=== PATIENT | female | born 1985 | race African-American/Black ===

== ENCOUNTER 2016-12-08 15:39 | Inpatient (IN) | payer OTHER ==
--- NOTE | ~2016-12-08 | DS ---
Unit #: [id number] #: [id number] Patient: MARTIAN SALEH [id number] [facility] [address] [place] [address] [id number] I MR#: [id number] NAME: MARTINA SALEH ROOM: P256 Age: 31 Sex: F Admission Date: 12/08/2016 : 1985 Discharge Date: 12/18/2016 Attending Physician: Huber Mckenzie M.D. Primary Care Physician: Hiram Rios II, M.D. DISCHARGE SUMMARY IDENTIFYING DATA Ms. Saleh is a 31-year-old, , female who is a resident of [place], [place], and is known to us from previous multiple encounters and was self-referred to the hospital on a voluntary basis. DISCHARGE DIAGNOSES Psychiatric: Bipolar disorder, most recent episode depressed, recurrent, moderate, with psychosis; opioid dependence, moderate; methamphetamine dependence, moderate. Medical: Hepatis C. Stressors: Moderate psychosocial stressors. HISTORY OF PRESENT ILLNESS Please see initial psychiatric evaluation for details. PAST PSYCHIATRIC HISTORY Please see initial psychiatric evaluation for details. PAST MEDICAL HISTORY Please see initial psychiatric evaluation for details. HOSPITAL COURSE The patient was admitted to the adult chemical dependency unit at [facility] [place] and was oriented to the hospital environment. Routine p.r.n. medications were initiated, and she was started back on her home medications. Medications were adjusted and opioid detox protocol was initiated; however, the patient noticed to be very attention seeking, histrionic, and constantly asking for more and more medications and everyday she will have a list of symptoms, and list of requests and demands, and wanting medications to be adjusted constantly and wanting to move from one medication to another; however, some boundary setting was done and once stabilized, but was decided that the patient will be discharged home and will continue treatment on an outpatient basis. DISCHARGE MEDICATIONS Geodon 60 mg b.i.d. for bipolar, Remeron 15 mg at bedtime for depression, and Wellbutrin SR 200 mg in the morning for depression. DISCHARGE CONDITION Stable. PROGNOSIS Fair. Unit #: [id number] #: [id number] Patient: MARTINA SALEH Dictated by... Huber Mckenzie M.D. IAA/modl TD: 12/18/2016 18:59 JOB #: [id number] DISCHARGE SUMMARY Page 1 of 1 X Huber Mckenzie MD DISCHARGE SUMMARY
--- NOTE | ~2016-12-08 | HP ---
Unit #: [id number] #: [id number] Patient: PATRICIA SALEH [id number] [place] [address] [id number] I MR#: [id number] NAME: PATRICIA SALEH ROOM: P180 Age: 31 Sex: F Admission Date: 12/08/2016 : 1985 Attending Physician: Huber Mckenzie M.D. Admitting Physician: Huber Mckenzie M.D. Primary Care Physician: Hiram Rios II, M.D. HISTORY AND PHYSICAL HISTORY OF PRESENT ILLNESS Patricia is a 31-year-old female admitted on 12/08/[address] [place] [address] for psychosis. PAST MEDICAL HISTORY Hepatitis C and possible cirrhosis of the liver. PAST SURGICAL HISTORY Appendectomy. SOCIAL HISTORY Smokes two packs of cigarettes daily, a history of binge alcohol use with her last use in July. She is currently and homeless. FAMILY HISTORY Noncontributory. REVIEW OF SYSTEMS CONSTITUTIONAL: No fever or chills. HEENT: Denies any sore throat, ear pain or runny nose. CARDIOVASCULAR: Denies chest pain, irregular heart rhythm or palpitations. CHEST: Denies shortness of breath or cough. No hemoptysis. GASTROINTESTINAL: Denies nausea, vomiting, diarrhea or chronic constipation. ENDOCRINE: Denies history of increased thirst or urination. No recent significant weight loss or gain. GENITOURINARY: Denies dysuria, frequency, or hematuria. SKIN: Denies any rashes. HEMATOLOGIC: Denies history of increased bleeding or bruising. MUSCULOSKELETAL: Denies any hot, swollen joints. No generalized muscle pain. NEUROLOGIC: Denies problems with vision or speech. No frequent, severe headaches. No numbness, tingling or weakness in any extremities. Denies loss of bladder or bowel control. CURRENT MEDICATIONS 1. Ambien 2. Neurontin 3. Seroquel 4. Valium Unit #: [id number] #: [id number] Patient: PATRICIA SALEH 5. Ibuprofen ALLERGIES No known drug allergies. PHYSICAL EXAMINATION GENERAL: Alert, oriented, in no acute distress. VITAL SIGNS: Blood pressure 136/94, heart rate 63, respirations 16, temperature 97.0. HEIGHT: 5 foot 3 inches. WEIGHT: 134 pounds. SKIN: Warm and dry without rash or lesion. HEENT: Normocephalic. TMs not viewed. Oral and nasal passages clear. Conjunctivae clear. PERRLA. EOMs intact. NECK: Supple without lymphadenopathy or thyromegaly. HEART: Regular rate and rhythm without murmur. LUNGS: Clear. ABDOMEN: Soft, nontender, without masses or hepatosplenomegaly. : Not done. EXTREMITIES: No evidence of cyanosis, clubbing or edema. Moves all without focal deficit. NEUROLOGICAL: Grossly within normal limits. Cranial Nerves: II: Visual michael are intact. III, IV AND : Extraocular movements are intact. Pupils are equal, round and reactive to light. V: Facial sensation is grossly normal. VII: Facial movements and expression are normal. VIII: Auditory acuity grossly intact. IX, X: Uvula is midline. Phonation is normal. XI: Patient shrugs shoulders and turns head normally. XII: Tongue protrudes in the midline. Sensory and Motor Function: Sensory and motor sensation is grossly normal. Motor: moves all extremities well. Coordination: Gait is normal. Deep Tendon Reflexes: Intact. IMPRESSION Psychiatric admission. RECOMMENDATIONS Psychiatric, per psychiatrist. MEDICAL: I see no contraindications to participating in facility's activities. MEDICAL PROGNOSIS Good. MEDICAL CONDITION Stable. Dictated by... Mayank Walls/angus Unit #: [id number] #: [id number] Patient: PATRICIA SALEH TD: 12/10/2016 02:53 JOB #: [id number] HISTORY AND PHYSICAL Page 1 of 1 X UYEN MARTINEZ APRN HISTORY AND PHYSICAL
--- NOTE | ~2016-12-08 | PN ---
Unit #: [id number] #: [id number] Patient: MARTINA SALEH [id number] [facility] [address] [place] [address] [id number] I MR#: [id number] NAME: MARTINA SALEH ROOM: P180 Age: 31 Sex: F Admission Date: 12/08/2016 : 1985 Attending Physician: Huber Mckenzie M.D. Admitting Physician: Huber Mckenzie M.D. Primary Care Physician: Hiram Rios II, M.D. [facility] PROGRESS NOTES DATE OF SERVICE 12/09/2016 DISCUSSION Ms. Saleh is a 31-year-old female who was seen today. Chart was reviewed and case was discussed with the staff. She has been anxious and withdrawn though has not shown any agitation or irritability and has been cooperative with treatment recommendations and has been taking the medications and tolerating them fairly well with no reported side effects. MENTAL STATUS EXAMINATION Young female who is casually dressed with fair personal hygiene, appears to be in no acute distress or discomfort. The patient was awake and alert with impaired attention and concentration. Her mood is anxious with congruent affect. Speech is slow and goal-directed. She denies any suicidal or homicidal ideations, and also denies any auditory or visual hallucinations. Her insight and judgment remain slightly impaired. TREATMENT PLAN 1. We will continue her on her current medications and treatment protocol. We will monitor her response to the medications and make further adjustments as needed. 2. We will continue to follow up. Dictated by... Froilan Alvarez/estefany TD: 12/10/2016 08:37 JOB #: [id number] Unit #: [id number] #: [id number] Patient: MARTINA SALHE PROGRESS NOTES Page 1 of 1 X Huber Mckenzie MD PROGRESS NOTE
--- NOTE | ~2016-12-08 | CO ---
Unit #: [id number] #: [id number] Patient: PATRICIA SALEH [id number] [place] [address] [id number] I MR#: [id number] NAME: PATRICIA SALEH ROOM: P180 Age: 31 Sex: F Admission Date: 12/08/2016 : 1985 Attending Physician: Huber Mckenzie M.D. Primary Care Physician: Hiram Rios II, M.D. Consultation Date: 12/09/2016 CONSULTATION REPORT HISTORY OF PRESENT ILLNESS Patricia reports diagnosis last week of gonorrhea. She was seen at [facility] [place] [facility] ER. She also reports that they prescribed a cream for her and she is not sure what the cream is for. She frequently has unprotected sex and like to have an STD panel. She is not having any abdominal pain, abnormal discharge, or fever. No other complaints. PHYSICAL EXAMINATION CARDIAC: Regular rate and rhythm. No murmurs, gallops, or rubs. RESPIRATORY: Clear to auscultation bilaterally. ASSESSMENT AND PLAN High-risk sexual activity. We will obtain STD panel and treat as appropriate. Dictated by... Yojana Coffman A.P.R.N. for Froilan Huizar/leonides TD: 12/10/2016 00:17 JOB #: [id number] CONSULTATION REPORT Page 1 of 1 X YOJANA MARTINEZ APRN X CONSULTATION REPORT
--- NOTE | ~2016-12-08 | PN ---
Unit #: [id number] #: [id number] Patient: MARTINA SALEH [id number] [facility] [address] [place] [address] [id number] I MR#: [id number] NAME: MARTINA SALEH ROOM: P256 Age: 31 Sex: F Admission Date: 12/08/2016 : 1985 Attending Physician: Huber Mckenzie M.D. Admitting Physician: Huber Mckenzie M.D. Primary Care Physician: Hiram Rios II, M.D. [facility] PROGRESS NOTES DATE OF SERVICE: 12/16/2016 SUBJECTIVE Ms. Saleh is a 31-year-old female, who was seen today and chart was reviewed and the case was discussed with the staff. She has been anxious, withdrawn, and rather seclusive to herself. Meanwhile, she has been cooperative with the treatment recommendations and has been taking the medications and tolerating them fairly well. MENTAL STATUS EXAMINATION Young female, who was casually dressed with fair personal hygiene, appears to be in no acute distress or discomfort. She was awake and alert with intact orientation. Her mood was anxious with a congruent affect. She denies any suicidal or homicidal ideations. Her insight and judgment remain slightly impaired. TREATMENT PLAN 1. We will continue her on her current treatment protocol. We will monitor her response to the medications and make further adjustments as needed. 2. We will continue to follow up. Dictated by... Froilan Alvarez/leonides TD: 12/16/2016 12:57 JOB #: [id number] YOVANY PROGRESS NOTES Page 1 of 1 X Huber Mckenzie MD X PROGRESS NOTE
--- NOTE | ~2016-12-08 | PN ---
Unit #: [id number] #: [id number] Patient: MARTINA SALEH [id number] [facility] [address] [place] [address] [id number] I MR#: [id number] NAME: MARTINA SALEH ROOM: P259 Age: 31 Sex: F Admission Date: 12/08/2016 : 1985 Attending Physician: Huber Mckenzie M.D. Admitting Physician: Huber Mckenzie M.D. Primary Care Physician: Hiram Rios II, M.D. [facility] PROGRESS NOTES DATE 12/10/2016 DISCUSSION Ms. Saleh is a 31-year-old female who was seen today and chart was reviewed and case was discussed with the staff. She has been anxious, withdrawn and rather seclusive to herself. Meanwhile, she has been cooperative with treatment recommendations has been taking the medications and tolerating them fairly well with no reported side effects. MENTAL STATUS EXAMINATION Young female who was casually dressed with fair personal hygiene, appears to be in no acute distress or discomfort. She was awake and alert on interaction with intact orientation. Her mood was anxious and depressed with congruent affect. She denies any suicidal or homicidal ideations. Also, denies any auditory or visual hallucinations. Her insight and judgement remains slightly impaired. TREATMENT PLAN 1. We will continue her on her current medications and treatment protocol. We will monitor her response to the medication and make further adjustments as needed. 2. We will continue to follow up. Dictated by... Froilan Alvarez/angus TD: 12/11/2016 02:38 JOB #: [id number] Unit #: [id number] #: [id number] Patient: MARTINA SALEH PROGRESS NOTES Page 1 of 1 X Huber Mckenzie MD X PROGRESS NOTE
--- NOTE | ~2016-12-08 | PN ---
Unit #: [id number] #: [id number] Patient: MARTINA SALEH [id number] [facility] [address] [place] [address] [id number] I MR#: [id number] NAME: MARTINA SALEH ROOM: P256 Age: 31 Sex: F Admission Date: 12/08/2016 : 1985 Attending Physician: Huber Mckenzie M.D. Admitting Physician: Huber Mckenzie M.D. Primary Care Physician: Hiram Rios II, M.D. [facility]ACE PROGRESS NOTES DATE OF SERVICE 12/14/2016 DISCUSSION Ms. Saleh is a 31-year-old female with bipolar disorder who was seen today. Chart was reviewed and case was discussed with the staff. She reports doing somewhat better as medications were adjusted and Geodon was started and Remeron was added, and she stated that she finally was able to calm down and get to sleep and appeared to be showing a better therapeutic response to this regimen than on previous medications. MENTAL STATUS EXAMINATION Young female who is casually dressed with fair personal hygiene, appears to be in no acute distress or discomfort. The patient was awake and alert with impaired attention and concentration. Her mood is anxious and depressed with congruent affect. Speech is slow and restricted in content. She denies any suicidal or homicidal ideation, and also denies any auditory or visual hallucinations. Her insight and judgment remain slightly impaired. TREATMENT PLAN 1. We will continue her on her current treatment protocol. We will monitor her response and make further adjustments as needed. 2. We will continue to follow up. Dictated by... Froilan Alvarez/bzg TD: 12/15/2016 08:46 JOB #: [id number] Unit #: [id number] #: [id number] Patient: MARTINA SALEH PEAKIRA PROGRESS NOTES Page 1 of 1 X Huber Mckenzie MD PROGRESS NOTE
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
--- NOTE | ~2016-12-08 | CO ---
Unit #: [id number] #: [id number] Patient: MARTINA SALEH [id number] [place] [address] [id number] I MR#: [id number] NAME: MARTINA SALEH ROOM: P256 Age: 31 Sex: F Admission Date: 12/08/2016 : 1985 Attending Physician: Huber Mckenzie M.D. Primary Care Physician: Hiram Rios II, M.D. Consultation Date: 12/16/2016 CONSULTATION REPORT ORDERING PROVIDER Dr. Mckenzie. REASON FOR CONSULT Cough, upper respiratory symptoms and low back pain. SUBJECTIVE The patient reports that for the last couple of days, she has had a stuffy nose with cough. She was spitting up phlegm. She smokes 2 packs of cigarettes daily. She denies any wheezing or shortness of breath and denies chest pain. The patient also reports that she has a herniated disk in her lumbar spine. She used to be in pain management and last saw them about a year ago. She has significant pain in her lumbar spine and the pain keeps her up at night. When asked how she functions with her pain considering she has not been to pain management in a year, she said that she frequently goes to the hospital. When she is there, they typically give her IV pain medication and send her home with Lortab. She has tried tramadol in the past and that did not work. She has been taking ibuprofen being here, but she does not feel that it is working either. Of note, she has elevated liver enzymes. When probed more about it, she reports that she has a history of hepatitis C. Her tox screen was evaluated and noted to be positive for marijuana and cocaine. Therefore, no benzodiazepine will be given. OBJECTIVE The patient's examination was fairly unremarkable. She does have some tenderness to palpation around L5-S1 and complained of pain with every range of motion. Her reflexes were within normal limits. Strength was equal in bilateral lower extremity. ASSESSMENT 1. Upper respiratory infection with cough. 2. Low back pain. 3. Hepatitis C. PLAN 1. Robitussin DM was prescribed for her cough. 2. Because of her positive tox screen, we will do a steroid pack and Flexeril, but no narcotic medication. She was instructed to follow up with her PCP regarding her hepatitis status. Dictated by... Unit #: [id number] #: [id number] Patient: MARTINA SALEH A.P.R.N. for Froilan Huizar/leonides TD: 12/17/2016 00:07 JOB #: [id number] CONSULTATION REPORT Page 1 of 1 X ROHITH HERNANDEZ APRN X CONSULTATION REPORT
--- NOTE | ~2016-12-08 | PN ---
Unit #: [id number] #: [id number] Patient: MARTINA SALEH [id number] [facility] [address] [place] [address] [id number] MR#: [id number] NAME: MARTINA SALEH ROOM: P259 Age: 31 Sex: F Admission Date: 12/08/2016 : 1985 Attending Physician: Huber Mckenzie M.D. Admitting Physician: Huber Mckenzie M.D. Primary Care Physician: Hiram Rios II, M.D. [facility] PROGRESS NOTES DATE 12/11/2016 DISCUSSION Ms. Saleh is a 31-year-old female who was seen today and chart was reviewed and case was discussed with the staff. She has been anxious, withdrawn and rather seclusive to herself. Meanwhile, she has been cooperative with treatment recommendations as she has been taking the medications and tolerating them fairly well. MENTAL STATUS EXAMINATION Young female who was casually dressed with fair personal hygiene, appears to be in no acute distress or discomfort. She was awake and alert on interaction with intact orientation. Her mood was anxious with congruent affect. She denies any suicidal or homicidal ideations. Also, denies any auditory or visual hallucinations. Her insight and judgement remains slightly impaired. TREATMENT PLAN 1. We will continue her on her current treatment protocol. We will monitor her response and make further adjustments as needed. 2. We will continue to follow up. Dictated by... Froilan Alvarez/angus TD: 12/11/2016 22:54 JOB #: [id number] Unit #: [id number] #: [id number] Patient: MARTINA SALEH PEAKIRA PROGRESS NOTES Page 1 of 1 X Huber Mckenzie MD PROGRESS NOTE
--- NOTE | ~2016-12-08 | PN ---
Unit #: [id number] #: [id number] Patient: MARTINA SALEH [id number] [facility] [address] [place] [address] [id number] I MR#: [id number] NAME: MARTINA SALEH ROOM: P256 Age: 31 Sex: F Admission Date: 12/08/2016 : 1985 Attending Physician: Huber Mckenzie M.D. Admitting Physician: Huber Mckenzie M.D. Primary Care Physician: Hiram Rios II, M.D. [facility] PROGRESS NOTES DATE OF SERVICE 12/17/2016 DISCUSSION Ms. Saleh is a 31-year-old female who was seen today. Chart was reviewed and case was discussed with the staff. She has been anxious, withdrawn, and rather seclusive to herself. Meanwhile, she has been cooperative with the treatment recommendations and has been taking the medications and tolerating them fairly well with no reported side effects. MENTAL STATUS EXAMINATION Young female who is casually dressed with fair personal hygiene, appears to be in no acute distress or discomfort. She was awake and alert on interaction with intact orientation. Her mood is anxious with congruent affect. She denies any suicidal or homicidal ideations and also denies any auditory or visual hallucinations. Her insight and judgment remain slightly impaired. TREATMENT PLAN 1. We will continue her on her current treatment protocol. We will monitor her response to the medications and make further adjustments as needed. 2. We will continue to follow up. Dictated by... Huber Mckenzie M.D. IAA/bzg TD: 12/18/2016 15:10 JOB #: [id number] Unit #: [id number] #: [id number] Patient: MARTINA SALEH PEAKIRA PROGRESS NOTES Page 1 of 1 X Huber Mckenzie MD PROGRESS NOTE
--- NOTE | ~2016-12-08 | PN ---
Unit #: [id number] #: [id number] Patient: MARTINA SALEH [id number] [facility] [address] [place] [address] [id number] MR#: [id number] NAME: MARTINA SALEH ROOM: P256 Age: 31 Sex: F Admission Date: 12/08/2016 : 1985 Attending Physician: Huber Mckenzie M.D. Admitting Physician: Huber Mckenzie M.D. Primary Care Physician: Hiram Rios II, M.D. [facility] PROGRESS NOTES DATE OF SERVICE: 12/15/2016 SUBJECTIVE Ms. Saleh is a 31-year-old female with mood disorder, who was seen today and chart was reviewed and the case was discussed with the staff, who reports the patient has been exhibiting significant med-seeking behavior and has been wanting more and more medications. Meanwhile, she has not shown any agitation or aggression. MENTAL STATUS EXAMINATION Young female, who was casually dressed with fair personal hygiene, appears to be in no acute distress or discomfort. She was awake and alert with impaired attention and concentration. Her mood was anxious with a congruent affect. She denies any suicidal or homicidal ideations. Her insight and judgment remain slightly impaired. TREATMENT PLAN 1. We will continue her on her current medications and treatment protocol. We will monitor her response to the medications and make further adjustments as needed. 2. We will continue to follow up. Dictated by... Froilan Alvarez/leonides TD: 12/16/2016 19:33 JOB #: [id number] [facility] PROGRESS NOTES Page 1 of 1 X Huber Mckenzie MD X PROGRESS NOTE
--- NOTE | ~2016-12-08 | PN ---
Unit #: [id number] #: [id number] Patient: MARTINA SALEH [id number] [facility] [address] [place] [address] [id number] MR#: [id number] NAME: MARTINA SALEH ROOM: P259 Age: 31 Sex: F Admission Date: 12/08/2016 : 1985 Attending Physician: Hubre Mckenzie M.D. Admitting Physician: Huber Mckenzie M.D. Primary Care Physician: Hiram Rios II, M.D. [facility] PROGRESS NOTES DATE OF SERVICE 12/12/2016 DISCUSSION Ms. Saleh is a 31-year-old female who was seen today. Chart was reviewed and case was discussed with the staff. She has been anxious, withdrawn, and rather seclusive to herself. Meanwhile, she has been cooperative with the treatment recommendations and has been taking the medications and tolerating them fairly well with no reported side effects though has been complaining of some persistent anxiety as well as mood swings and irritability. MENTAL STATUS EXAMINATION Young female who is casually dressed with fair personal hygiene, appears to be in no acute distress or discomfort. She was awake and alert on interaction with intact orientation. Her mood is anxious and depressed with congruent affect. Her speech is slow and goal-directed. She denies any current suicidal or homicidal ideations and also denies any auditory or visual hallucinations. Her insight and judgment remain slightly impaired. TREATMENT PLAN 1. We will continue her on her current medications and treatment protocol. We will monitor her response to the medications and make further adjustments as needed. 2. We will continue to follow up. Dictated by... Froilan Alvarez/sawyerg TD: 12/13/2016 13:05 JOB #: [id number] Unit #: [id number] #: [id number] Patient: MARTINA SALEH PROGRESS NOTES Page 1 of 1 X Huber Mckenzie MD PROGRESS NOTE
[~2016-12-08 15:39] MED LIST: FLEXERIL10 MG PO; LORTAB 5/500 TA1 TA1 PO
[2016-12-09 11:38] LABS: BASOPHIL# 0.1 X10e3 (0-0.3); DIFF IND YES; EOSINOPHIL# 0.1 X10e3 (0-0.7); EOSINOPHIL% 1.1 % (0.0-7.0); HEMATOCRIT 41.1 % (35.0-45.0); HEMOGLOBIN 13.9 gm/dL (12.0-16.0); LYMPHOCYTE# 3.4 X10e3 (1.0-3.5); LYMPHOCYTE% 52.5 % (17.0-45.0); MEAN CELL VOLUME 87.3 FL (83-96); MEAN CORPUSCULAR HEMOGLOBIN 29.5 PG (28-34); MEAN CORPUSCULAR HGB CONC 33.7 g/dL (30-36); MEAN PLATELET VOLUME 7.2 FL (6.5-11.5); MONOCYTE# 0.7 X10e3 (0-1.0); NEUTROPHIL# 2.3 X10e3 (1.5-7.1); NEUTROPHIL% 35.4 % (40-75); PLATELET COUNT 400 X10e3 (140-420); RED BLOOD COUNT 4.71 X10e (3.90-5.30); RED CELL DISTRIBUTION WIDTH 14.4 % (11.0-15.5); WHITE BLOOD COUNT 6.6 X10e3 (4.0-10.5)
[2016-12-09 11:44] LABS: ALBUMIN SERUM 4.1 g/dL (3.5-5.0); BILIRUBIN,TOTAL 0.7 mg/dL (0.2-2.0); BUN/CREATININE RATIO 11.42; CALCIUM SERUM 9.5 mg/dL (8.4-10.2); CREATININE SERUM 0.7 mg/dL (0.6-1.4); GLOM FILT RATE Estimated 132.9 mL/min (>60); PROTEIN TOTAL SERUM 7.3 g/dL (6.0-8.3)
[2016-12-09 12:10] LABS: ANISOCYTOSIS SL; PLATELET ESTIMATE NORMAL (NORMAL)
[2016-12-10 09:48] LABS: URINE APPEARANCE CLEAR; URINE BILIRUBIN NEG (NEG); URINE BLOOD NEG (NEG); URINE COLOR YELLOW; URINE GLUCOSE NEG (NEG); URINE KETONE NEG (NEG); URINE LEUKOCYTE ESTERASE NEG (NEG); URINE NITRATE NEG (NEG); URINE PH 7.5 (5-8); URINE PROTEIN NEG (NEG); URINE SPECIFIC GRAVITY 1.013 (1.003-1.035)
[2016-12-10 10:09] LABS: AMPHETAMINE NEG (NEG); BARBITURATES NEG (NEG); BENZODIAZEPINES POS (NEG); COCAINE POS (NEG); MARIJUANA POS (NEG); OPIATES NEG (NEG); TRICYCLIC ANTIDEPRESSANTS POS (NEG); U METHADONE NEG (NEG)
[2016-12-11 19:04] LABS: CHLAMYDIA TRACH Not Detected (Not Detected); N GONOR Not Detected (Not Detected)
[2016-12-20 07:59] LABS: HA AB IGM (HEPPAN) Nonreactive (()); HB CORE AB IGM (HEPPAN) Nonreactive (Nonreactive); HB S AG (HEPPAN) Nonreactive (Nonreactive); HEP C AB (HEPPAN) Reactive (Nonreactive); HSV 1 DNA Not Detected (Not Detected); HSV 2 DNA Not Detected (Not Detected)
== END 2016-12-18 11:30 | disposition home or self-care (01) | DRG 885 ==
LOC: P2L 15:39 → P1E 15:39 → P2L 12-10 14:04
PROVIDERS: Psychiatry & Neurology Psychiatry
PROC: HZ2ZZZZ Detoxification Services for Substance Abuse Treatment (ICD-10-PCS; principal; 2016-12-08)
DX: F31.32 Bipolar disorder, current episode depressed, moderate (principal); F11.20 Opioid dependence, uncomplicated; F15.20 Other stimulant dependence, uncomplicated; F29 Unspecified psychosis not due to a substance or known physiological condition; B19.20 Unspecified viral hepatitis C without hepatic coma
CPT/HCPCS: 80053; 80074; 80307; 81003; 84703; 85025; 86592; 87491; 87522; 87529; 87591; 87806

== ENCOUNTER 2016-12-25 10:13 | Emergency (ER) | payer OTHER | END 2016-12-25 11:10 | disposition left against medical advice (07) | LOC: CED 10:13 | DX: Z53.21 Procedure and treatment not carried out due to patient leaving prior to being seen by health care provider (principal) ==